=== PATIENT | female | born 1940 | race Caucasian/White ===

== ENCOUNTER 2017-08-10 06:53 | Inpatient (IN) | payer MEDICARE, BC ==
[~2017-08-10] VITALS: Ht 167.6 cm; Wt 54.0 kg
[2017-08-10] VITALS (10 sets, daily range): BP systolic 117–147; BP diastolic 52–76; PULSE 46–61; RESP 12–18; TEMP 97.1–98.8; O2SAT 96–100
--- NOTE | 2017-08-10 07:44 | PD ---
HPI Chief Complaint: GI Complaint Time Seen by Provider: 07:16 Travel History International Travel<30 days: No Contact w/Intl Traveler<30days: No Traveled to known affect area: No History of Present Illness HPI This patient is brought in by her daughter. Patient has moderate dementia. She complains of nausea and generalized weakness and dysuria. She is currently on antibiotics for urinary tract infection. She is not having fever or vomiting or diarrhea or abdominal pain. Symptoms have no alleviating factors. No Exacerbating factors. Duration 3-4 days. PFSH Past Medical History Diminished Hearing: No Tetanus Vaccination: Unknown Influenza Vaccination: No ?: Not Social History Alcohol Use: No Tobacco Use: No Substance Use: No Allergies-Medications (Allergen,Severity, Reaction): Coded Allergies: No Known Allergies (Verified Allergy, Unknown, 08/10/17) Review of Systems General / Constitutional: No: Fever Eyes: No: Visual changes HENT: No: Headaches Cardiovascular: No: Chest Pain or Discomfort Respiratory: No: Shortness of Breath Gastrointestinal: Positive: Nausea, No: Abdominal Pain Genitourinary: Positive: Dysuria Musculoskeletal: Positive: Weakness, No: Pain Skin: No Rash Neurologic: Positive: Weakness Psychiatric: No: Depression Endocrine: No: Polydipsia Hematologic/Lymphatic: No: Easy Bruising Physical Exam Narrative GENERAL: Well-nourished, well-developed patient in no apparent distress. SKIN: Focused skin assessment reveals no rash and nodules. Skin is Warm and dry. HEAD: Atraumatic. Normocephalic. EYES: Pupils equal and round. No scleral icterus. No injection or drainage. ENT: No nasal bleeding or discharge. Mucous membranes pink and moist. NECK: Trachea midline. No JVD. CARDIOVASCULAR: Regular rate and rhythm. No murmur appreciated. RESPIRATORY: No accessory muscle use. Clear to auscultation. Breath sounds equal bilaterally. GASTROINTESTINAL: Abdomen soft, non-tender, nondistended. Hepatic and splenic margins not palpable. MUSCULOSKELETAL: No obvious deformities. No clubbing. No cyanosis. No edema. NEUROLOGICAL: Awake and alert. No obvious cranial nerve deficits. Motor grossly within normal limits. Normal speech. PSYCHIATRIC: Depressed appearing mood and flat affect; insight and judgment reduced. Data Data Last Documented VS Vital Signs Date Time Temp Pulse Resp B/P (MAP) Pulse Ox O2 Delivery O2 Flow Rate FiO2 08/10/17 08:02 100 08/10/17 07:05 98.1 54 16 147/67 (93) Orders Orders Complete Blood Count With Diff (08/10/17 07:39) Comprehensive Metabolic Panel (08/10/17 07:39) Urinalysis - C+S If Indicated (08/10/17 07:39) Iv Access Insert/Monitor (08/10/17 07:39) Ecg Monitoring (08/10/17 07:39) Oximetry (08/10/17 07:39) Ondansetron Inj (Zofran Inj) (08/10/17 07:45) Sodium Chloride 0.9% Flush (Ns Flush) (08/10/17 07:45) Electrocardiogram (08/10/17 07:39) Chest, Single Ap (08/10/17 ) Admit Order (Ed Use Only) (08/10/17 09:27) Labs Laboratory Tests Test 08/10/17 07:45 White Blood Count 7.5 TH/MM3 Red Blood Count 4.96 MIL/MM3 Hemoglobin 12.4 GM/DL Hematocrit 36.5 % Mean Corpuscular Volume 73.5 FL Mean Corpuscular Hemoglobin 25.0 PG Mean Corpuscular Hemoglobin Concent 34.0 % Red Cell Distribution Width 15.7 % Platelet Count 182 TH/MM3 Mean Platelet Volume 7.5 FL Neutrophils (%) (Auto) 69.6 % Lymphocytes (%) (Auto) 17.5 % Monocytes (%) (Auto) 10.8 % Eosinophils (%) (Auto) 1.6 % Basophils (%) (Auto) 0.5 % Neutrophils # (Auto) 5.2 TH/MM3 Lymphocytes # (Auto) 1.3 TH/MM3 Monocytes # (Auto) 0.8 TH/MM3 Eosinophils # (Auto) 0.1 TH/MM3 Basophils # (Auto) 0.0 TH/MM3 CBC Comment DIFF FINAL Differential Comment Urine Color DARK-YELLOW Urine Turbidity HAZY Urine pH 7.5 Urine Specific [place] 1.008 Urine Protein NEG mg/dL Urine Glucose (UA) NEG mg/dL Urine Ketones 10 mg/dL Urine Occult Blood NEG Urine Nitrite NEG Urine Bilirubin NEG Urine Urobilinogen LESS THAN 2.0 MG/DL Urine Leukocyte Esterase NEG Urine RBC 2 /hpf Urine WBC 1 /hpf Urine Squamous Epithelial Cells <1 /hpf Urine Amorphous Sediment OCC Urine Bacteria RARE /hpf Microscopic Urinalysis Comment CULT NOT INDICATED Blood Urea Nitrogen 8 MG/DL Creatinine 0.66 MG/DL Random Glucose 101 MG/DL Total Protein 6.8 GM/DL Albumin 3.9 GM/DL Calcium Level 8.7 MG/DL Alkaline Phosphatase 56 U/L Aspartate Amino Transf (AST/SGOT) 35 U/L Alanine Aminotransferase (ALT/SGPT) 24 U/L Total Bilirubin 1.0 MG/DL Sodium Level 117 MEQ/L Potassium Level 3.9 MEQ/L Chloride Level 82 MEQ/L Carbon Dioxide Level 25.9 MEQ/L Anion Gap 9 MEQ/L Estimat Glomerular Filtration Rate 87 ML/MIN MDM Medical Decision Making Medical Screen Exam Complete: Yes Emergency Medical Condition: Yes Medical Record Reviewed: Yes Differential Diagnosis Gastroenteritis, colitis, UTI, depression, anxiety Narrative Course I have reviewed the patient's electronic medical record. Patient has no prior lab studies to compare 07 40 : Ordered a medical workup on this patient with moderate dementia and some vague generalized symptoms such as weakness and nausea IV placed and labs sent IV Zofran given Has soft benign nontender abdomen and normal vital signs 08 10: I reviewed her EKG which shows sinus rhythm without ectopy or ST elevation Urinalysis is clean and culture not indicated 08 40: I reevaluated the patient. Lab studies of come back. CBC and LFTs are normal but metabolic profile significant for prominent hyponatremia of 117 Certainly this could explain her generalized weakness Residents are paged for admission I reviewed with daughter at bedside Etiology of her hyponatremia is unclear. There is no prior history of that. She takes no diuretics. She doesn't look clinically dehydrated. 0928: Case reviewed with hospitalist. She will be admitted for hyponatremia. Diagnosis Primary Impression: Hyponatremia Admitting Information Admitting Physician Requests: Admit Adonis Bangura MD Aug 10, 2017 07:44
[2017-08-10] MEDS ORDERED: ONDANSETRON HCL 4 MG/2 ML VIAL IVP ONE (07:45)
[2017-08-10] MEDS ORDERED: SODIUM CHLORIDE 0.9% FLUSH 10 ML FLUSH IV FLUSH PRN ×3 (07:45→19:45)
[2017-08-10 07:57] LABS: AUTOMATED NEUTROPHIL # 5.2 TH/MM3 (1.8-7.7); BASOPHIL % 0.5 % (0.0-2.0); EOSINOPHIL # 0.1 TH/MM3 (0-0.4); EOSINOPHIL % 1.6 % (0.0-4.0); HEMATOCRIT 36.5 % (35.0-46.0); HEMOGLOBIN 12.4 GM/DL (11.6-15.3); LYMPH % 17.5 % (9.0-44.0); LYMPHOCYTE # 1.3 TH/MM3 (1.0-4.8); MEAN CELL VOLUME 73.5 FL (80.0-100.0); MEAN PLATELET VOLUME 7.5 FL (7.0-11.0); MONO % 10.8 % (0.0-8.0); MONOCYTE # 0.8 TH/MM3 (0-0.9); NEUT % 69.6 % (16.0-70.0); PLATELET COUNT 182 TH/MM3 (150-450); RED BLOOD COUNT 4.96 MIL/MM3 (4.00-5.30); RED CELL DISTRIBUTION WIDTH 15.7 % (11.6-17.2); WHITE BLOOD COUNT 7.5 TH/MM3 (4.0-11.0)
[2017-08-10 08:06] LABS: AMORPHOUS SEDIMENT, URINE OCC; BACTERIA, URINE RARE /hpf; BILIRUBIN, URINE NEG (NEG); BLOOD, URINE NEG (NEG); GLUCOSE,URINE NEG (NEG); KETONE, URINE 10 mg/dL (NEG); NITRITE,URINE NEG (NEG); PH, URINE 7.5 (5.0-8.5); SQUAMOUS EPITHELIAL CELL URINE <1 /hpf (0-5); URINE COLOR DARK-YELLOW (YELLW/STRAW); URINE LEUKOCYTE ESTERASE NEG (NEG)
[2017-08-10 08:18] LABS: ALBUMIN 3.9 GM/DL (3.4-5.0); ALKALINE PHOSPHATASE 56 U/L (45-117); ALT (GPT) 24 U/L (10-53); AST (GOT) 35 U/L (15-37); BICARBONATE 25.9 MEQ/L (21.0-32.0); BLOOD UREA NITROGEN 8 MG/DL (7-18); CALCIUM 8.7 MG/DL (8.5-10.1); CHLORIDE 82 MEQ/L (98-107); CREATININE 0.66 MG/DL (0.50-1.00); GLOMERULAR FILTRATION RATE 87 ML/MIN (>89); GLUCOSE,RANDOM 101 MG/DL (74-106); TOTAL PROTEIN 6.8 GM/DL (6.4-8.2)
[2017-08-10 08:26] LABS: SODIUM (NA) 117 MEQ/L (136-145)
[2017-08-10] MEDS ORDERED: SODIUM CHLOR 0.9% 1000 ML INJ 1,000 ML IV SCH (09:27)
[2017-08-10] MEDS ORDERED: SENNOSIDES 8.6 MG TAB PO PRN (09:30)
[2017-08-10] MEDS ORDERED: BISACODYL 10 MG SUPP RECTAL PRN (09:30)
[2017-08-10] MEDS ORDERED: MAGNESIUM HYDROXIDE SUSP 30 ML CUP PO PRN (09:30)
[2017-08-10] MEDS ORDERED: LACTULOSE SYRUP 20 GM/30 ML CUP PO PRN (09:30)
[2017-08-10] MEDS ORDERED: ACETAMINOPHEN 325 MG TAB PO PRN (09:30)
[2017-08-10] MEDS ORDERED: ONDANSETRON HCL 4 MG/2 ML VIAL IVP PRN (09:30)
[2017-08-10] MEDS ORDERED: NALOXONE HCL 0.4 MG/ML AMP IV PUSH PRN (09:30)
[2017-08-10] MEDS ORDERED: MEMA1CAP4 PO (09:44)
[2017-08-10] MEDS ORDERED: LISI10TA3 PO (09:44)
[2017-08-10] MEDS ORDERED: ESCI10TA PO (09:44)
--- NOTE | 2017-08-10 09:45 | RADRPT ---
EXAM DATE/TIME: 08/10/2017 09:32 [facility] COMPARISON: No previous studies available for comparison. INDICATIONS : Syncope. MEDICAL HISTORY : urinary tract infections SURGICAL HISTORY : None. ENCOUNTER: Initial ACUITY: 1 day PAIN SCORE: 0/10 LOCATION: Bilateral chest FINDINGS: Portable AP view of the chest demonstrates a normal-sized cardiac silhouette. No effusion, consolidat ion, or pneumothorax is visualized. The bones and soft tissues demonstrate no acute abnormality. EKG lines overlie the patient. Lungs are underinflated with mild atelectasis at the lung bases. CONCLUSION: No acute cardiopulmonary abnormality is identified. Branden Harden MD on August 10, 2017 at 9:43 Board Certified Radiologist. This report was verified electronically.
--- NOTE | 2017-08-10 12:40 | HHI.HP ---
[facility] Efren Harmon M.D. Admission Diagnosis hyponatremia,nausea,gen weakness Diagnoses: Chief Complaint: Nausea, generalized weakness Travel History International Travel<30 Days: No Contact w/Intl Traveler <30 Da: No Traveled to Known Affected Are: No History of Present Illness Patient is a very pleasant 77-year-old female who presented to the emergency room with complaints of nausea, abdominal cramps, generalized weakness. She has a past medical history of high blood pressure and mild dementia. she is confused and disoriented to time place and person, she did have a history of some nausea and vomiting earlier. Her sodium was 117 he was given normal saline and it dropped to 115, patient remains alert but is pleasantly confused, per family at bedside daughter she is more confused than when she came to the ED. Per daughter patient is not taking any diuretics, she is not drinking alcohol. Per daughter the patient is not eating much. Also patient lost 4 pounds for the past 3 month. No n/v/d/c at this time. History obtained partially from patient and from daughter at bedside. Review of Systems ROS Limitations: Clinical Condition, Altered Mental Status Except as stated in HPI: all other systems reviewed are Neg Past Family Social History Past Medical History Hypertension Dementia Past Surgical History Hysterectomy Reported Medications Reported Meds & Active Scripts Active Reported Multiple Vitamin 1 Tab 1 Tab PO DAILY Lisinopril 10 Mg Tab 10 Mg PO DAILY Escitalopram (Escitalopram Oxalate) 10 Mg Tab 10 Mg PO DAILY Namzaric (Memantine-Donepezil) 21-10 mg Cap 1 Cap PO HS Allergies: Coded Allergies: No Known Allergies (Verified Allergy, Unknown, 08/10/17) Family History Father had dementia and stroke Mother had a brain tumor Social History Denies alcohol use, illicit drug use or tobacco use. Used to smoke when she was in her 20s Physical Exam Vital Signs Vital Signs Date Time Temp Pulse Resp B/P (MAP) Pulse Ox O2 Delivery O2 Flow Rate FiO2 08/10/17 11:08 58 18 124/76 (92) 98 Room Air 08/10/17 08:02 100 08/10/17 07:05 98.1 54 16 147/67 (70) 100 Physical Exam GENERAL: This is a well-nourished, well-developed patient, in no apparent distress. SKIN: No rashes, ecchymoses or lesions. Cool and dry. HEAD: Atraumatic. Normocephalic. No temporal or scalp tenderness. EYES: Pupils equal round and reactive. Extraocular motions intact. No scleral icterus. No injection or drainage. ENT: Nose without bleeding, purulent drainage or septal hematoma. Throat without erythema, tonsillar hypertrophy or exudate. Uvula midline. Airway patent. NECK: Trachea midline. No JVD or lymphadenopathy. Supple, nontender, no meningeal signs. CARDIOVASCULAR: Regular rate and rhythm without murmurs, gallops, or rubs. RESPIRATORY: Clear to auscultation. Breath sounds equal bilaterally. No wheezes , rales, or rhonchi. GASTROINTESTINAL: Abdomen soft, non-tender, nondistended. No hepato-splenomegaly , or palpable masses. No guarding. MUSCULOSKELETAL: Extremities without clubbing, cyanosis, or edema. No joint tenderness, effusion, or edema noted. No calf tenderness. Negative Homans sign bilaterally. NEUROLOGICAL: Awake and alert. Cranial nerves II through XII intact. Motor and sensory grossly within normal limits. Five out of 5 muscle strength in all muscle groups. Normal speech. Laboratory Laboratory Tests Test 08/10/17 07:45 08/10/17 10:10 White Blood Count 7.5 Red Blood Count 4.96 Hemoglobin 12.4 Hematocrit 36.5 Mean Corpuscular Volume 73.5 Mean Corpuscular Hemoglobin 25.0 Mean Corpuscular Hemoglobin Concent 34.0 Red Cell Distribution Width 15.7 Platelet Count 182 Mean Platelet Volume 7.5 Neutrophils (%) (Auto) 69.6 Lymphocytes (%) (Auto) 17.5 Monocytes (%) (Auto) 10.8 Eosinophils (%) (Auto) 1.6 Basophils (%) (Auto) 0.5 Neutrophils # (Auto) 5.2 Lymphocytes # (Auto) 1.3 Monocytes # (Auto) 0.8 Eosinophils # (Auto) 0.1 Basophils # (Auto) 0.0 CBC Comment DIFF FINAL Differential Comment Urine Color DARK-YELLOW Urine Turbidity HAZY Urine pH 7.5 Urine Specific [place] 1.008 Urine Protein NEG Urine Glucose (UA) NEG Urine Ketones 10 Urine Occult Blood NEG Urine Nitrite NEG Urine Bilirubin NEG Urine Urobilinogen LESS THAN 2.0 Urine Leukocyte Esterase NEG Urine RBC 2 Urine WBC 1 Urine Squamous Epithelial Cells <1 Urine Amorphous Sediment OCC Urine Bacteria RARE Microscopic Urinalysis Comment CULT NOT INDICATED Blood Urea Nitrogen 8 Creatinine 0.66 Random Glucose 101 Total Protein 6.8 Albumin 3.9 Calcium Level 8.7 Alkaline Phosphatase 56 Aspartate Amino Transf (AST/SGOT) 35 Alanine Aminotransferase (ALT/SGPT) 24 Total Bilirubin 1.0 Sodium Level 117 Potassium Level 3.9 Chloride Level 82 Carbon Dioxide Level 25.9 Anion Gap 9 Estimat Glomerular Filtration Rate 87 Serum Osmolality 240 Result Diagram: 08/10/17 0745 08/10/17 0745 Imaging Last Impressions Chest X-Ray 08/10/17 0000 Signed Impressions: Service Date/Time: Tuesday, August 10, 2017 19:22 - CONCLUSION: Right-sided PICC line has its tip in the superior vena cava. Mild cardiomegaly. No focal infiltrate. Silas Bejarano MD Caprini VTE Risk Assessment Caprini VTE Risk Assessment: Mod/High Risk (score >= 2) Caprini Risk Assessment Model Point Value = 1 Point Value = 2 Point Value = 3 Point Value = 5 Age 41-60 Minor surgery BMI > 25 kg/m2 Swollen legs Varicose veins or History of unexplained or recurrent spontaneous Oral contraceptives or hormone replacement Sepsis (< 1 month) Serious lung disease, including pneumonia (< 1 month) Abnormal pulmonary function Acute myocardial infarction Congestive heart failure (< 1 month) History of inflammatory bowel disease Medical patient at bed rest Age 61-74 Arthroscopic surgery Major open surgery (> 45 min) Laparoscopic surgery (> 45 min) Malignancy Confined to bed (> 72 hours) Immobilizing plaster cast Central venous access Age >= 75 History of VTE Family history of VTE Factor V Leiden Prothrombin [id number] Lupus anticoagulant Anticardiolipin antibodies Elevated serum homocysteine Heparin-induced thrombocytopenia Other congenital or acquired thrombophilia Stroke (< 1 month) Elective arthroplasty Hip, pelvis, or leg fracture Acute spinal cord injury (< 1 month) Prophylaxis Regimen Total Risk Factor Score Risk Level Prophylaxis Regimen 0-1 Low Early ambulation 2 Moderate Order ONE of the following: *Sequential Compression Device (SCD) *Heparin 5000 units SQ BID 3-4 Higher Order ONE of the following medications: *Heparin 5000 units SQ TID *Enoxaparin/Lovenox 40 mg SQ daily (WT < 150 kg, CrCl > 30 mL/min) *Enoxaparin/Lovenox 30 mg SQ daily (WT < 150 kg, CrCl > 10-29 mL/min) *Enoxaparin/Lovenox 30 mg SQ BID (WT < 150 kg, CrCl > 30 mL/min) AND/OR *Sequential Compression Device (SCD) 5 or more Highest Order ONE of the following medications: *Heparin 5000 units SQ TID (Preferred with Epidurals) *Enoxaparin/Lovenox 40 mg SQ daily (WT < 150 kg, CrCl > 30 mL/min) *Enoxaparin/Lovenox 30 mg SQ daily (WT < 150 kg, CrCl > 10-29 mL/min) *Enoxaparin/Lovenox 30 mg SQ BID (WT < 150 kg, CrCl > 30 mL/min) AND *Sequential Compression Device (SCD) Assessment and Plan Assessment and Plan Hyponatremia Hypo-osmolality and hyponatremia Acute metabolic encephalopathy 2/2 hyponatremia Patient with Na of 117 on admission and with nausea and weakness. Placed on 0.9 NS and repeat Na trending down to 115 patient is noted confused at this time. Transferred to ICU for 3% hypertonic NS. Ordered PICC line for administration Patient has a PICC line and going to get 3% hypertonic saline Follow BMP Check random urine sodium, serum and urine osmolality Monitor closely Na for overcorrection, correct not more than 6-8 mEq per 24 hours Consult nephrology HTN, mild dementia. Cotinue home meds as indicated. DVT ppx scd/teds /lovenox Discussed Condition With patient, daughter at bedside, ER physician Dr Barclay Physician Certification 2 Midnight Certification Type: Admission for Inpatient Services Order for Inpatient Services The services are ordered in accordance with Medicare regulations or non- Medicare payer requirements, as applicable. In the case of services not specified as inpatient-only, they are appropriately provided as inpatient services in accordance with the 2-midnight benchmark. Estimated LOS (days): 3 days is the estimated time the patient will need to remain in the hospital, assuming treatment plan goals are met and no additional complications. Post-Hospital Plan: Home Leanne Anthony MD Aug 10, 2017 12:40
[2017-08-10] MEDS ORDERED: MULTTAB67 PO (13:52)
[2017-08-10 16:20] LABS: BICARBONATE 22.4 MEQ/L (21.0-32.0); CALCIUM 8.5 MG/DL (8.5-10.1); CREATININE 0.59 MG/DL (0.50-1.00)
[2017-08-10] MEDS ORDERED: 3% SALINE INJ 500 ML IV ONE ×2 (18:00→21:00)
--- NOTE | 2017-08-10 19:48 | RADRPT ---
EXAM DATE/TIME: 08/10/2017 19:22 [facility] COMPARISON: CHEST SINGLE AP, August 10, 2017, 9:32. INDICATIONS : PICC line placement. MEDICAL HISTORY : None. SURGICAL HISTORY : None. ENCOUNTER: Initial ACUITY: 1 day PAIN SCORE: 0/10 LOCATION: Bilateral chest FINDINGS: A single view of the chest demonstrates the lungs to be symmetrically aerated without evidence of mas s, infiltrate or effusion. The heart is mildly prominent. The right-sided PICC line has its tip in th e superior vena cava. Osseous structures are intact. CONCLUSION: Right-sided PICC line has its tip in the superior vena cava. Mild cardiomegaly. No focal infiltrate. Silas Bejarnao MD on August 10, 2017 at 19:46 Board Certified Radiologist. This report was verified electronically.
--- NOTE | 2017-08-10 19:54 | PD.CONS ---
HPI Service Nephrology Consult Requested By Dr. Anthony Reason for Consult Hyponatremia Primary Care Physician Efren Harmon M.D. History of Present Illness Patient is a pleasant 77-year-old white female who is confused and disoriented to time place and person, she did have a history of some nausea and vomiting earlier and dementia, her sodium was 117 he was given normal saline and it dropped to 115, patient remains alert but is pleasantly confused. Review of Systems ROS Limitations: Clinical Condition Past Family Social History Allergies: Coded Allergies: No Known Allergies (Verified Allergy, Unknown, 08/10/17) Past Medical History History of nausea vomiting Hypertension Dementia Past Surgical History Not known Reported Medications Reported Meds & Active Scripts Active Reported Multiple Vitamin 1 Tab 1 Tab PO DAILY Lisinopril 10 Mg Tab 10 Mg PO DAILY Escitalopram (Escitalopram Oxalate) 10 Mg Tab 10 Mg PO DAILY Namzaric (Memantine-Donepezil) 21-10 mg Cap 1 Cap PO HS Active Ordered Medications Current Medications Medications (Trade) Dose Ordered Sig/Deyvi Route Start Time Stop Time Status Last Admin Sodium Chloride 1,000 ml @ 100 mls/hr Q10H IV 08/10/17 09:27 08/10/17 10:13 (NS Flush) 2 ml UNSCH PRN IV FLUSH 08/10/17 09:30 (NS Flush) 2 ml BID IV FLUSH 08/10/17 21:00 (Tylenol) 650 mg Q4H PRN PO 08/10/17 09:30 (Zofran Inj) 4 mg Q6H PRN IVP 08/10/17 09:30 (Narcan Inj) 0.4 mg UNSCH PRN IV PUSH 08/10/17 09:30 (Jayda-Colace) 1 tab BID PO 08/10/17 21:00 (Milk Of Magnesia Liq) 30 ml Q12H PRN PO 08/10/17 09:30 (Senokot) 17.2 mg Q12H PRN PO 08/10/17 09:30 (Dulcolax Supp) 10 mg DAILY PRN RECTAL 08/10/17 09:30 (Lactulose Liq) 30 ml DAILY PRN PO 08/10/17 09:30 Sodium Chloride 500 ml @ 10 mls/hr ONCE ONCE IV 08/10/17 18:00 08/12/17 19:59 (NS Flush) See Protocol DAILY IV FLUSH 08/11/17 09:00 (NS Flush) See Protocol UNSCH PRN IV FLUSH 08/10/17 19:45 (Heparin Central Flush) See Protocol DAILY IV FLUSH 08/11/17 09:00 (Heparin Central Flush) See Protocol UNSCH PRN IV FLUSH 08/10/17 19:45 (NS Flush) 10 ml UNSCH PRN IV FLUSH 08/10/17 19:45 Family History Noncontributory Social History Unknown Physical Exam Vital Signs Vital Signs Date Time Temp Pulse Resp B/P (MAP) Pulse Ox O2 Delivery O2 Flow Rate FiO2 08/10/17 18:02 98 21 08/10/17 16:28 98.8 54 18 117/52 (73) 98 08/10/17 16:00 61 08/10/17 14:15 97.1 55 17 135/63 (87) 99 08/10/17 14:00 54 08/10/17 11:08 58 18 124/76 (92) 98 Room Air 08/10/17 08:02 100 08/10/17 07:05 98.1 54 16 147/67 (93) 100 Physical Exam GENERAL: Well-nourished, well-developed patient. SKIN: Warm and dry. HEAD: Normocephalic. EYES: No scleral icterus. No injection or drainage. NECK: Supple, trachea midline. No JVD or lymphadenopathy. CARDIOVASCULAR: Regular rate and rhythm without murmurs, gallops, or rubs. RESPIRATORY: Breath sounds equal bilaterally. No accessory muscle use. GASTROINTESTINAL: Abdomen soft, non-tender, nondistended. EXTREMITIES: No cyanosis, or edema. NEUROLOGICAL: Awake, alert, confused Laboratory Laboratory Tests Test 08/10/17 07:45 08/10/17 10:10 08/10/17 15:14 08/10/17 19:15 White Blood Count 7.5 Red Blood Count 4.96 Hemoglobin 12.4 Hematocrit 36.5 Mean Corpuscular Volume 73.5 Mean Corpuscular Hemoglobin 25.0 Mean Corpuscular Hemoglobin Concent 34.0 Red Cell Distribution Width 15.7 Platelet Count 182 Mean Platelet Volume 7.5 Neutrophils (%) (Auto) 69.6 Lymphocytes (%) (Auto) 17.5 Monocytes (%) (Auto) 10.8 Eosinophils (%) (Auto) 1.6 Basophils (%) (Auto) 0.5 Neutrophils # (Auto) 5.2 Lymphocytes # (Auto) 1.3 Monocytes # (Auto) 0.8 Eosinophils # (Auto) 0.1 Basophils # (Auto) 0.0 CBC Comment DIFF FINAL Differential Comment Urine Color DARK-YELLOW Urine Turbidity HAZY Urine pH 7.5 Urine Specific [place] 1.008 Urine Protein NEG Urine Glucose (UA) NEG Urine Ketones 10 Urine Occult Blood NEG Urine Nitrite NEG Urine Bilirubin NEG Urine Urobilinogen LESS THAN 2.0 Urine Leukocyte Esterase NEG Urine RBC 2 Urine WBC 1 Urine Squamous Epithelial Cells <1 Urine Amorphous Sediment OCC Urine Bacteria RARE Microscopic Urinalysis Comment CULT NOT INDICATED Blood Urea Nitrogen 8 7 Creatinine 0.66 0.59 Random Glucose 101 119 Total Protein 6.8 Albumin 3.9 Calcium Level 8.7 8.5 Alkaline Phosphatase 56 Aspartate Amino Transf (AST/SGOT) 35 Alanine Aminotransferase (ALT/SGPT) 24 Total Bilirubin 1.0 Sodium Level 117 115 Potassium Level 3.9 4.2 Chloride Level 82 83 Carbon Dioxide Level 25.9 22.4 Anion Gap 9 10 Estimat Glomerular Filtration Rate 87 99 Serum Osmolality 240 Result Diagram: 08/10/17 0745 08/10/17 1514 Imaging Last Impressions Chest X-Ray 08/10/17 0000 Signed Impressions: Service Date/Time: Thursday, August 10, 2017 09:32 - CONCLUSION: No acute cardiopulmonary abnormality is identified. Branden Harden MD Assessment and Plan Problem List: (1) Hyponatremia ICD Codes: E87.1 - Hypo-osmolality and hyponatremia Status: Acute Plan: Patient has a PICC line and going to get 3% hypertonic saline Will increase the rate to 20 cc an hour as she has altered mental sensorium and we need to get this corrected At 0.5 mEq per hour Follow BMP I will check random urine sodium and cancel 24-hour urine collection for sodium Diet to correct not more than 6-8 mEq per 24 hours (2) Altered mental status ICD Codes: R41.82 - Altered mental status, unspecified Plan: Plan as above Trisha Fatima MD Aug 10, 2017 19:54
[2017-08-10 20:02] LABS: BICARBONATE 24.8 MEQ/L (21.0-32.0); CALCIUM 8.3 MG/DL (8.5-10.1); CREATININE 0.6 MG/DL (0.50-1.00)
[2017-08-10] MEDS: SODIUM CHLORIDE 0.9% FLUSH 10 ML FLUSH IV FLUSH SCH (20:49)
[2017-08-10] MEDS: DOCUSATE SODIUM 50 MG/SENNA 8.6 MG TAB PO SCH (20:49)
[2017-08-11] VITALS (13 sets, daily range): BP systolic 92–159; BP diastolic 54–87; PULSE 48–66; RESP 15–23; TEMP 97.7–98.7; O2SAT 98–100
[2017-08-11 05:35] LABS: AUTOMATED NEUTROPHIL # 5.3 TH/MM3 (1.8-7.7); BASOPHIL % 0.4 % (0.0-2.0); EOSINOPHIL # 0.1 TH/MM3 (0-0.4); EOSINOPHIL % 1.4 % (0.0-4.0); HEMATOCRIT 36.9 % (35.0-46.0); HEMOGLOBIN 12.5 GM/DL (11.6-15.3); LYMPH % 20.1 % (9.0-44.0); LYMPHOCYTE # 1.6 TH/MM3 (1.0-4.8); MEAN CELL VOLUME 73.7 FL (80.0-100.0); MEAN CORPUSCULAR HEMOGLOBIN 24.9 PG (27.0-34.0); MEAN CORPUSCULAR HGB CONC 33.8 % (32.0-36.0); MEAN PLATELET VOLUME 7.3 FL (7.0-11.0); MONO % 12.1 % (0.0-8.0); PLATELET COUNT 171 TH/MM3 (150-450); RED BLOOD COUNT 5.01 MIL/MM3 (4.00-5.30); RED CELL DISTRIBUTION WIDTH 15.7 % (11.6-17.2)
[2017-08-11 06:07] LABS: BICARBONATE 24.3 MEQ/L (21.0-32.0); CALCIUM 8.2 MG/DL (8.5-10.1); CREATININE 0.51 MG/DL (0.50-1.00)
--- NOTE | 2017-08-11 08:32 | HHI.PR ---
Subjective Remarks Patient is in bed, less confused today. Per daughter she was eating breakfast however denied any lunch. Patient says she did not get the tree. Discussed with the nurse. Patient still with a decreased appetite. No nausea or vomiting no diarrhea or constipation she was ambulating. Weakness improving. Her daughter still not at baseline mentation. Objective Vitals Vital Signs Date Time Temp Pulse Resp B/P (MAP) Pulse Ox O2 Delivery O2 Flow Rate FiO2 08/11/17 06:00 50 08/11/17 04:00 98.1 48 18 115/58 (77) 99 08/11/17 04:00 48 08/11/17 02:00 60 08/11/17 00:00 50 08/11/17 00:00 98.1 50 19 115/56 (75) 99 08/10/17 22:00 46 08/10/17 20:00 98.2 56 12 125/60 (81) 96 08/10/17 20:00 56 08/10/17 18:02 98 21 08/10/17 16:28 98.8 54 18 117/52 (73) 98 08/10/17 16:00 61 08/10/17 14:15 97.1 55 17 135/63 (87) 99 08/10/17 14:00 54 08/10/17 11:08 58 18 124/76 (92) 98 Room Air I/O 08/10/17 08/10/17 08/10/17 08/11/17 08/11/17 08/11/17 07:00 15:00 23:00 07:00 15:00 23:00 Intake Total 264 ml 244 ml Balance 264 ml 244 ml Intake Oral 60 ml IV Total 264 ml 184 ml # Voids 6 # Bowel Movements 0 Result Diagram: 08/11/17 0515 08/11/17 0515 Imaging Last Impressions Chest X-Ray 08/10/17 0000 Signed Impressions: Service Date/Time: Thursday, August 10, 2017 19:22 - CONCLUSION: Right-sided PICC line has its tip in the superior vena cava. Mild cardiomegaly. No focal infiltrate. Silas Bejarano MD Objective Remarks GENERAL: This is a well-nourished, well-developed patient, in no apparent distress. CARDIOVASCULAR: Regular rate and rhythm without murmurs, gallops, or rubs. RESPIRATORY: Clear to auscultation. Breath sounds equal bilaterally. No wheezes , rales, or rhonchi. GASTROINTESTINAL: Abdomen soft, non-tender, nondistended. No hepato-splenomegaly , or palpable masses. No guarding. MUSCULOSKELETAL: Extremities without clubbing, cyanosis, or edema. No joint tenderness, effusion, or edema noted. No calf tenderness. Negative Homans sign bilaterally. NEUROLOGICAL: Awake and alert. Cranial nerves II through XII intact. Motor and sensory grossly within normal limits. Five out of 5 muscle strength in all muscle groups. Normal speech. A/P Assessment and Plan Hyponatremia Hypo-osmolality and hyponatremia Acute metabolic encephalopathy 2/2 hyponatremia Patient with Na of 117 on admission and with nausea and weakness. Placed on 0.9 NS and repeat Na trending down to 115 patient is noted confused at this time. Transferred to ICU for 3% hypertonic NS. Patient has a PICC line received 3% hypertonic saline Follow BMP Consult nephrology, ff Check random urine sodium, serum and urine osmolality Monitor closely Na for overcorrection, correct not more than 6-8 mEq per 24 hours 3 Na level 131 incorrect, repeat Na 126. Lab draw from PICC line are inaccurate, also HS was running and even flushes can alter chemistry or give you false results 126 may be more accurate although peripheral sample may be needed DC 3% NS and started on 0.9 NS. Continue to monitor sodium level. HTN, mild dementia. Cotinue home meds as indicated. DVT ppx scd/teds /lovenox Discussed Condition With patient, nurse Leanne Anthony MD Aug 11, 2017 08:32
[2017-08-11] MEDS: SODIUM CHLORIDE 0.9% FLUSH 10 ML FLUSH IV FLUSH SCH ×3 (08:43→20:41)
[2017-08-11] MEDS: SODIUM CHLOR 0.9% 1000 ML INJ 1,000 ML IV SCH ×2 (08:43→20:10)
[2017-08-11] MEDS: DOCUSATE SODIUM 50 MG/SENNA 8.6 MG TAB PO SCH ×2 (08:43→20:41)
--- NOTE | 2017-08-11 09:43 | EKG ---
Date Performed: 08/10/2017 Time Performed: 07:58:05 PTAGE: 77 years EKG: SINUS BRADYCARDIA POSSIBLE LEFT ATRIAL ENLARGEMENT POSSIBLE RIGHT VENTRICULAR CONDUCTION DE LAY BORDERLINE ECG NO PREVIOUS TRACING DOCTOR: Papi Avila Interpretating Date/Time 08/11/2017 09:39:30
--- NOTE | 2017-08-11 10:10 | HHI.NPPN ---
Subjective History of Present Illness 77 year old with hyponatremia Objective Data Data Vital Signs Date Time Temp Pulse Resp B/P (MAP) Pulse Ox O2 Delivery O2 Flow Rate FiO2 08/11/17 06:00 50 08/11/17 04:00 98.1 48 18 115/58 (77) 99 08/11/17 04:00 48 08/11/17 02:00 60 08/11/17 00:00 50 08/11/17 00:00 98.1 50 19 115/56 (75) 99 08/10/17 22:00 46 08/10/17 20:00 98.2 56 12 125/60 (81) 96 08/10/17 20:00 56 08/10/17 18:02 98 21 08/10/17 16:28 98.8 54 18 117/52 (73) 98 08/10/17 16:00 61 08/10/17 14:15 97.1 55 17 135/63 (87) 99 08/10/17 14:00 54 08/10/17 11:08 58 18 124/76 (92) 98 Room Air -: 08/11/17 0515 08/11/17 0900 Physical Exam General Appearance: Well Developed Neck Neck Exam: Neck Supple Pulmonary Resp Exam: Clear Bilaterally, Breath Sounds Equal Cardiology CV Exam: Regular, Normal Sinus Rhythm Gastrointestinal/Abdomen GI Exam: Soft, Bowel Sounds Present Neurologic Neuro Exam: Alert Assessment/Plan Problem List: (1) Hyponatremia ICD Codes: E87.1 - Hypo-osmolality and hyponatremia Status: Acute Plan: Patient has a PICC line and received 3% hypertonic saline first reading of 131 incorrect repeat Na 126, Lab draw from PICC line are inaccurate as HS was running and even flushes can alter chemistry or give you false results 126 may be more accurate although peripheral sample may be needed 126 which corresponds to 1 meq /hr that is more accurate 3% HS stopped and monitor sodium (2) Altered mental status ICD Codes: R41.82 - Altered mental status, unspecified Plan: Plan as above Trisha Fatima MD Aug 11, 2017 10:10
[2017-08-11 18:08] LABS: BICARBONATE 21.5 MEQ/L (21.0-32.0); CALCIUM 8.6 MG/DL (8.5-10.1); CREATININE 0.62 MG/DL (0.50-1.00)
[2017-08-11] MEDS: MEGESTROL ACETATE SUSP 400 MG/10 ML CUP PO SCH (18:57)
[2017-08-11] MEDS ORDERED: [UNRECOGNIZED DRUG - OTHER] PO SCH (21:00)
[2017-08-11] MEDS ORDERED: NON-FORMULARY DRUG (Memantine-Donepezil (Namzaric) 1 CAP) PO SCH (21:00)
[2017-08-12] VITALS (12 sets, daily range): BP systolic 91–144; BP diastolic 52–78; PULSE 54–66; RESP 14–33; TEMP 98–98.7; O2SAT 97–100
[2017-08-12] MEDS: SODIUM CHLOR 0.9% 1000 ML INJ 1,000 ML IV SCH ×2 (04:29→20:16)
[2017-08-12 05:32] LABS: BICARBONATE 23.5 MEQ/L (21.0-32.0); CALCIUM 8.5 MG/DL (8.5-10.1); CREATININE 0.54 MG/DL (0.50-1.00)
--- NOTE | 2017-08-12 07:49 | HHI.PR ---
Subjective Remarks The patient is seen in the bed. Still confused however per family she is near to her baseline. Sodium improved him back to almost normal. Feels tired. Had diarrhea yesterday. Normal bowel movement in the morning today. No nausea. Still not eating much, she does not have appetite. No fever or chills. Objective Vitals Vital Signs Date Time Temp Pulse Resp B/P (MAP) Pulse Ox O2 Delivery O2 Flow Rate FiO2 08/12/17 06:00 61 08/12/17 04:00 98.1 54 32 131/78 (95) 98 08/12/17 04:00 54 08/12/17 02:00 56 08/12/17 00:00 54 08/12/17 00:00 98.4 54 14 144/64 (90) 97 08/11/17 22:00 66 08/11/17 20:38 100 21 08/11/17 20:00 98.6 62 16 92/54 (67) 98 08/11/17 20:00 62 08/11/17 19:00 98 Room Air 08/11/17 18:00 62 08/11/17 16:00 98.7 58 15 137/87 (104) 100 08/11/17 16:00 62 08/11/17 14:00 58 08/11/17 12:00 51 08/11/17 12:00 97.7 54 16 159/70 (99) 100 08/11/17 10:00 59 08/11/17 08:00 49 08/11/17 08:00 97.8 49 23 127/62 (83) 98 I/O 08/11/17 08/11/17 08/11/17 08/12/17 08/12/17 08/12/17 07:00 15:00 23:00 07:00 15:00 23:00 Intake Total 244 ml 420 ml 240 ml Balance 244 ml 420 ml 240 ml Intake Oral 60 ml 420 ml 240 ml IV Total 184 ml # Voids 6 3 7 # Bowel Movements 0 1 1 Result Diagram: 08/11/17 0515 08/12/17 0427 Imaging Last Impressions Chest X-Ray 08/10/17 0000 Signed Impressions: Service Date/Time: Thursday, August 10, 2017 19:22 - CONCLUSION: Right-sided PICC line has its tip in the superior vena cava. Mild cardiomegaly. No focal infiltrate. Silas Bejarano MD Objective Remarks GENERAL: This is a well-nourished, well-developed patient, in no apparent distress. CARDIOVASCULAR: Regular rate and rhythm without murmurs, gallops, or rubs. RESPIRATORY: Clear to auscultation. Breath sounds equal bilaterally. No wheezes , rales, or rhonchi. GASTROINTESTINAL: Abdomen soft, non-tender, nondistended. No hepato-splenomegaly , or palpable masses. No guarding. MUSCULOSKELETAL: Extremities without clubbing, cyanosis, or edema. No joint tenderness, effusion, or edema noted. No calf tenderness. Negative Homans sign bilaterally. NEUROLOGICAL: Awake and alert. Cranial nerves II through XII intact. Motor and sensory grossly within normal limits. Five out of 5 muscle strength in all muscle groups. Normal speech. A/P Assessment and Plan Hyponatremia Hypo-osmolality and hyponatremia Acute metabolic encephalopathy 2/2 hyponatremia Patient with Na of 117 on admission and with nausea and weakness. Placed on 0.9 NS and repeat Na trending down to 115 patient is noted confused at this time. Transferred to ICU for 3% hypertonic NS. Sodium improved.. Patient has a PICC line received 3% hypertonic saline Follow BMP Consult nephrology, ff Check random urine sodium, serum and urine osmolality Monitor closely Na for overcorrection, correct not more than 6-8 mEq per 24 hours 08/11 Na level 131 incorrect, repeat Na 126. Lab draw from PICC line are inaccurate, also HS was running and even flushes can alter chemistry or give you false results. 126 may be more accurate although peripheral sample may be needed DC 3% NS and started on 0.9 NS. Continue to monitor sodium level. 08/12/17 sodium back to 134. Continue to monitor continue normal saline, check sodium level tomorrow if stable and patient eating appropriately when my discharge home. HTN, mild dementia. Cotinue home meds as indicated. PT consult DVT ppx scd/teds /lovenox Discussed Condition With patient, nurse, family at bedside Transfer to [facility] floor Discharge plan. Possible discharge tomorrow if sodiums stable and if patient is able to eat better Leanne Anthony MD Aug 12, 2017 07:49
[2017-08-12] MEDS: MULTIVITAMIN TAB PO SCH (08:25)
[2017-08-12] MEDS: DOCUSATE SODIUM 50 MG/SENNA 8.6 MG TAB PO SCH ×2 (08:25→20:15)
[2017-08-12] MEDS: SODIUM CHLORIDE 0.9% FLUSH 10 ML FLUSH IV FLUSH SCH ×3 (08:25→20:15)
[2017-08-12] MEDS: ESCITALOPRAM OXALATE 10 MG TAB PO SCH (08:25)
[2017-08-12] MEDS: LISINOPRIL 10 MG TAB PO SCH (08:25)
[2017-08-12] MEDS ORDERED: NON-FORMULARY DRUG (Multiple Vitamin 1 TAB) PO SCH (09:00)
[2017-08-12] MEDS: MEGESTROL ACETATE SUSP 400 MG/10 ML CUP PO SCH (11:42)
--- NOTE | 2017-08-12 16:13 | HHI.NPPN ---
Subjective History of Present Illness 77 year old with hyponatremia Objective Data Data Vital Signs Date Time Temp Pulse Resp B/P (MAP) Pulse Ox O2 Delivery O2 Flow Rate FiO2 08/12/17 14:00 58 08/12/17 12:00 98.1 58 15 105/54 (71) 100 08/12/17 12:00 58 08/12/17 10:00 61 08/12/17 08:00 98.0 57 33 137/68 (91) 100 08/12/17 08:00 61 08/12/17 07:51 99 21 08/12/17 07:00 100 Room Air 08/12/17 06:00 61 08/12/17 04:00 98.1 54 32 131/78 (95) 98 08/12/17 04:00 54 08/12/17 02:00 56 08/12/17 00:00 54 08/12/17 00:00 98.4 54 14 144/64 (90) 97 08/11/17 22:00 66 08/11/17 20:38 100 21 08/11/17 20:00 98.6 62 16 92/54 (67) 98 08/11/17 20:00 62 08/11/17 19:00 98 Room Air 08/11/17 18:00 62 -: 08/11/17 0515 08/12/17 0427 Physical Exam General Appearance: Well Developed Neck Neck Exam: Neck Supple Pulmonary Resp Exam: Clear Bilaterally, Breath Sounds Equal Cardiology CV Exam: Regular, Normal Sinus Rhythm Gastrointestinal/Abdomen GI Exam: Soft, Bowel Sounds Present Neurologic Neuro Exam: Alert Assessment/Plan Problem List: (1) Hyponatremia ICD Codes: E87.1 - Hypo-osmolality and hyponatremia Status: Acute Plan: Patient has a PICC line Na 135 resolved Likely due to excessive water intake I will sign off (2) Altered mental status ICD Codes: R41.82 - Altered mental status, unspecified Plan: has dementia Trisha Fatima MD Aug 12, 2017 16:13
[2017-08-12] MEDS ORDERED: [UNRECOGNIZED DRUG - OTHER] PO SCH (22:00)
[2017-08-13] VITALS: BP 169/77; PULSE 57; RESP 16; TEMP 98.3; O2SAT 100
[2017-08-13 04:00] VITALS: BP 143/67; PULSE 66; RESP 16; TEMP 97.6; O2SAT 98
[2017-08-13 05:31] LABS: AUTOMATED NEUTROPHIL # 4.6 TH/MM3 (1.8-7.7); BASOPHIL # 0.1 TH/MM3 (0-0.2); BASOPHIL % 1.1 % (0.0-2.0); EOSINOPHIL # 0.1 TH/MM3 (0-0.4); EOSINOPHIL % 1.5 % (0.0-4.0); HEMATOCRIT 28.4 % (35.0-46.0); HEMOGLOBIN 9.7 GM/DL (11.6-15.3); LYMPH % 25.9 % (9.0-44.0); LYMPHOCYTE # 1.9 TH/MM3 (1.0-4.8); MEAN CELL VOLUME 73.7 FL (80.0-100.0); MEAN CORPUSCULAR HEMOGLOBIN 25.2 PG (27.0-34.0); MEAN CORPUSCULAR HGB CONC 34.2 % (32.0-36.0); MEAN PLATELET VOLUME 6.9 FL (7.0-11.0); MONO % 9.5 % (0.0-8.0); MONOCYTE # 0.7 TH/MM3 (0-0.9); PLATELET COUNT 127 TH/MM3 (150-450); RED BLOOD COUNT 3.86 MIL/MM3 (4.00-5.30); RED CELL DISTRIBUTION WIDTH 15.9 % (11.6-17.2); WHITE BLOOD COUNT 7.3 TH/MM3 (4.0-11.0)
[2017-08-13 05:56] LABS: BICARBONATE 23.8 MEQ/L (21.0-32.0); CALCIUM 7.8 MG/DL (8.5-10.1); CREATININE 0.38 MG/DL (0.50-1.00)
[2017-08-13 08:00] VITALS: BP 169/77; PULSE 60; RESP 18; TEMP 98.2; O2SAT 99
[2017-08-13] MEDS: MEGESTROL ACETATE SUSP 400 MG/10 ML CUP PO SCH (08:30)
[2017-08-13] MEDS: LISINOPRIL 10 MG TAB PO SCH (08:31)
[2017-08-13] MEDS: DOCUSATE SODIUM 50 MG/SENNA 8.6 MG TAB PO SCH (08:31)
[2017-08-13] MEDS: ESCITALOPRAM OXALATE 10 MG TAB PO SCH (08:31)
[2017-08-13] MEDS: MULTIVITAMIN TAB PO SCH (08:31)
[2017-08-13] MEDS: SODIUM CHLORIDE 0.9% FLUSH 10 ML FLUSH IV FLUSH SCH ×2 (08:37)
--- NOTE | 2017-08-13 09:11 | HHI.PR ---
Subjective Remarks in no acute distress. denies pain. no new complaints. family at the bedside. Objective Vitals Vital Signs Date Time Temp Pulse Resp B/P (MAP) Pulse Ox O2 Delivery O2 Flow Rate FiO2 08/13/17 08:00 98.2 60 18 169/77 (107) 99 08/13/17 04:00 97.6 66 16 143/67 (92) 98 08/13/17 00:00 98.3 57 16 169/77 (107) 100 08/12/17 20:00 98.7 66 21 91/52 (65) 98 08/12/17 20:00 66 08/12/17 19:00 98 Room Air 08/12/17 18:00 58 08/12/17 16:00 58 08/12/17 16:00 98.1 58 16 97/54 (68) 100 08/12/17 14:00 58 08/12/17 12:00 98.1 58 15 105/54 (71) 100 08/12/17 12:00 58 08/12/17 10:00 61 I/O 08/12/17 08/12/17 08/12/17 08/13/17 08/13/17 08/13/17 07:00 15:00 23:00 07:00 15:00 23:00 Intake Total 240 ml 525 ml 120 ml Balance 240 ml 525 ml 120 ml Intake Oral 240 ml 525 ml 120 ml # Voids 7 3 2 # Bowel Movements 1 2 Result Diagram: 08/13/17 0520 08/13/17 0520 Imaging Last Impressions Chest X-Ray 08/10/17 0000 Signed Impressions: Service Date/Time: Thursday, August 10, 2017 19:22 - CONCLUSION: Right-sided PICC line has its tip in the superior vena cava. Mild cardiomegaly. No focal infiltrate. Silas Bejarano MD Objective Remarks GENERAL: This is a well-nourished, well-developed patient, in no apparent distress. CARDIOVASCULAR: Regular rate and regular rhythm without murmurs, gallops, or rubs. RESPIRATORY: Clear to auscultation. Breath sounds equal bilaterally. No wheezes , rales, or rhonchi. GASTROINTESTINAL: Abdomen soft, non-tender, nondistended. Normal, active bowel sounds MUSCULOSKELETAL: Extremities without clubbing, cyanosis, or edema. NEURO: Alert & Oriented x4 to person, place, time, situation. Moves all ext x4 Medications and IVs Inpatient Medications Acetaminophen (Tylenol) 650 mg Q4H PRN PO TEMP > 100.4 Last administered on 08/12 12:03; Start 08/10/17 at 09:30 Bisacodyl (Dulcolax Supp) 10 mg DAILY PRN RECTAL SEVERE CONSITIPATION; Start at 09:30 Escitalopram Oxalate (Lexapro) 10 mg DAILY PO Last administered on 08/13/17at 08: 31; Start 08/12/17 at 09:00 Heparin Sodium (Porcine) (Heparin Central Flush) See Protocol UNSCH PRN IV FLUSH SEE PROTOCOL TABLE; Start 08/10/17 at 19:45 Lactulose (Lactulose Liq) 30 ml DAILY PRN PO SEVERE CONSITIPATION; Start at 09:30 Lisinopril (Prinivil) 10 mg DAILY PO Last administered on 08/12/17at 08:25; Start 08/12/17 at 09:00 Magnesium Hydroxide (Milk Of Magnesia Liq) 30 ml Q12H PRN PO Mild constipation ; Start 08/10/17 at 09:30 Megestrol Acetate (Megace Liq) 400 mg DAILY PO Last administered on 08/13/17 08 :30; Start 08/11/17 at 17:00 Multivitamins (Theragran) 1 tab DAILY PO Last administered on 08/13/17 08:31; Start 08/12/17 at 09:00 Naloxone HCl (Narcan Inj) 0.4 mg UNSCH PRN IV PUSH SEE LABEL COMMENTS; Start at 09:30 Ondansetron HCl (Zofran Inj) 4 mg Q6H PRN IVP NAUSEA OR VOMITING; Start at 09:30 Patient Own Medication PT OWN MED: NAMZA... HS PO Last administered on 23:24; Start 08/12/17 at 22:00 Senna/Docusate Sodium (Jayda-Colace) 1 tab BID PO Last administered on 08/12/17at 20:15; Start 08/10/17 at 21:00 Sennosides (Senokot) 17.2 mg Q12H PRN PO Moderate constipation; Start 08/10/17 at 09:30 Sodium Chloride 1,000 ml @ 84 mls/hr [id number] IV Last administered on 08/12/17at 20:16; Start 08/11/17 at 08:15 Sodium Chloride (NS Flush) 10 ml UNSCH PRN IV FLUSH SEE PROTOCOL TABLE Last administered on 08/13/17at 08:36; Start 08/10/17 at 19:45 A/P Assessment and Plan A/P Hyponatremia - resolved. Acute metabolic encephalopathy 2/2 hyponatremia - improved. nephrology consult appreciated-has signed off. anemia- likely due to dilution- repeat this afternoon. HTN, mild dementia. Cotinue home meds as indicated. PT consulted. DVT ppx scd/teds /lovenox Discharge Planning dc home this afternoon if stable. see med list. d/w the patient and her daughter. d/w the RN. Maynor Dumont MD Aug 13, 2017 09:11
[2017-08-13] MEDS ORDERED: POTASSIUM CHLORIDE 10 MEQ CONTROLLED RELEASE TAB PO ONE (09:15)
--- NOTE | 2017-08-13 09:17 | HHI.DS ---
Discharge Summary Admission Date Aug 10, 2017 at 09:29 Discharge Date: Aug 13, 2017 Admitting Diagnosis hyponatremia,nausea,gen weakness (1) Hyponatremia ICD Code: E87.1 - Hypo-osmolality and hyponatremia Diagnosis: Principal Status: Acute (2) Altered mental status ICD Code: R41.82 - Altered mental status, unspecified Diagnosis: Principal Procedures PICC line insertion. Brief History - From Admission Patient is a very pleasant 77-year-old female who presented to the emergency room with complaints of nausea, abdominal cramps, generalized weakness. She has a past medical history of high blood pressure and mild dementia. she is confused and disoriented to time place and person, she did have a history of some nausea and vomiting earlier. Her sodium was 117 he was given normal saline and it dropped to 115, patient remains alert but is pleasantly confused, per family at bedside daughter she is more confused than when she came to the ED. Per daughter patient is not taking any diuretics, she is not drinking alcohol. Per daughter the patient is not eating much. Also patient lost 4 pounds for the past 3 month. No n/v/d/c at this time. History obtained partially from patient and from daughter at bedside. CBC/BMP: 08/13/17 0520 08/13/17 0520 Significant Findings Laboratory Tests Test 08/10/17 10:10 08/10/17 15:14 08/10/17 19:15 08/10/17 22:00 Serum Osmolality 240 MOSM/KG (275-295) Random Glucose 119 MG/DL (74-106) 118 MG/DL (74-106) Sodium Level 115 MEQ/L (136-145) 115 MEQ/L (136-145) Chloride Level 83 MEQ/L (98-107) 82 MEQ/L (98-107) Calcium Level 8.3 MG/DL (8.5-10.1) Urine Osmolality 112 MOSM/KG (300-1300) Test 08/11/17 05:15 08/11/17 09:00 08/11/17 13:19 08/11/17 16:15 Mean Corpuscular Volume 73.7 FL (80.0-100.0) Mean Corpuscular Hemoglobin 24.9 PG (27.0-34.0) Monocytes (%) (Auto) 12.1 % (0.0-8.0) Monocytes # (Auto) 1.0 TH/MM3 (0-0.9) Calcium Level 8.2 MG/DL (8.5-10.1) Sodium Level 131 MEQ/L (136-145) 126 MEQ/L (136-145) 128 MEQ/L (136-145) 130 MEQ/L (136-145) Blood Urea Nitrogen 6 MG/DL (7-18) Test 08/12/17 04:27 08/13/17 05:20 Blood Urea Nitrogen 6 MG/DL (7-18) 6 MG/DL (7-18) Sodium Level 135 MEQ/L (136-145) Red Blood Count 3.86 MIL/MM3 (4.00-5.30) Hemoglobin 9.7 GM/DL (11.6-15.3) Hematocrit 28.4 % (35.0-46.0) Mean Corpuscular Volume 73.7 FL (80.0-100.0) Mean Corpuscular Hemoglobin 25.2 PG (27.0-34.0) Platelet Count 127 TH/MM3 (150-450) Mean Platelet Volume 6.9 FL (7.0-11.0) Monocytes (%) (Auto) 9.5 % (0.0-8.0) Creatinine 0.38 MG/DL (0.50-1.00) Calcium Level 7.8 MG/DL (8.5-10.1) Potassium Level 3.3 MEQ/L (3.5-5.1) Imaging Last Impressions Chest X-Ray 08/10/17 0000 Signed Impressions: Service Date/Time: Thursday, August 10, 2017 19:22 - CONCLUSION: Right-sided PICC line has its tip in the superior vena cava. Mild cardiomegaly. No focal infiltrate. Silas Bejarano MD PE at Discharge GENERAL: This is a well-nourished, well-developed patient, in no apparent distress. CARDIOVASCULAR: Regular rate and regular rhythm without murmurs, gallops, or rubs. RESPIRATORY: Clear to auscultation. Breath sounds equal bilaterally. No wheezes , rales, or rhonchi. GASTROINTESTINAL: Abdomen soft, non-tender, nondistended. Normal, active bowel sounds MUSCULOSKELETAL: Extremities without clubbing, cyanosis, or edema. NEURO: Alert & Oriented x4 to person, place, time, situation. Moves all ext x4 Hospital Course Hyponatremia - resolved. Acute metabolic encephalopathy 2/2 hyponatremia - improved. nephrology consult appreciated-has signed off. anemia- likely due to dilution- HTN, mild dementia. Cotinue home meds as indicated. PT consulted. DVT ppx scd/teds /lovenox Pt Condition on Discharge: Fair Discharge Disposition: Discharge Home Discharge Time: <= 30 minutes Discharge Instructions DIET: Follow Instructions for: Heart Healthy Diet Activities you can perform: Regular-No Restrictions Maynor Dumont MD Aug 13, 2017 09:17
[2017-08-13 09:51] VITALS: O2SAT 99
[2017-08-13 12:00] VITALS: BP 98/50; PULSE 60; RESP 18; TEMP 98; O2SAT 100
[2017-08-13 15:45] LABS: AUTOMATED NEUTROPHIL # 6.8 TH/MM3 (1.8-7.7); BASOPHIL % 0.5 % (0.0-2.0); EOSINOPHIL # 0.1 TH/MM3 (0-0.4); HEMATOCRIT 37.2 % (35.0-46.0); HEMOGLOBIN 12.5 GM/DL (11.6-15.3); LYMPHOCYTE # 1.8 TH/MM3 (1.0-4.8); MEAN CELL VOLUME 74.3 FL (80.0-100.0); MEAN CORPUSCULAR HEMOGLOBIN 24.9 PG (27.0-34.0); MEAN CORPUSCULAR HGB CONC 33.6 % (32.0-36.0); MEAN PLATELET VOLUME 7.6 FL (7.0-11.0); MONO % 7.9 % (0.0-8.0); MONOCYTE # 0.8 TH/MM3 (0-0.9); NEUT % 71.6 % (16.0-70.0); PLATELET COUNT 168 TH/MM3 (150-450); RED BLOOD COUNT 5.01 MIL/MM3 (4.00-5.30); RED CELL DISTRIBUTION WIDTH 15.9 % (11.6-17.2); WHITE BLOOD COUNT 9.5 TH/MM3 (4.0-11.0)
[2017-08-13 16:00] VITALS: BP 113/64; PULSE 55; RESP 18; TEMP 98.6; O2SAT 99
== END 2017-08-13 18:28 | disposition home or self-care (01) | DRG 640 ==
LOC: NEPE 06:53 → NEDA 09:29 → N05B 13:30 → N03B 18:05 → N05B 08-12 22:22
PROVIDERS: ADMIT Internal Medicine; ATTEND Internal Medicine
PROC: 02HV33Z Insertion of Infusion Device into Superior Vena Cava, Percutaneous Approach (ICD-10-PCS; principal; 2017-08-13)
DX: E87.1 Hypo-osmolality and hyponatremia (principal); G93.41 Metabolic encephalopathy; F03.90 Unspecified dementia, unspecified severity, without behavioral disturbance, psychotic disturbance, mood disturbance, and anxiety; I11.9 Hypertensive heart disease without heart failure; Z68.1 Body mass index [BMI] 19.9 or less, adult; Z87.891 Personal history of nicotine dependence; I51.7 Cardiomegaly; D64.9 Anemia, unspecified
CPT/HCPCS: 36569; 71045; 76937; 80048; 80053; 81001; 83930; 83935; 84295; 84300; 85025; 93005; 96374; J1642; J2405; J7030